=== PATIENT | male | born 1965 | race Caucasian/White ===

== ENCOUNTER 2023-03-11 10:52 | Outpatient (RCR) | payer OTHER, SELFPAY | END 2023-03-29 12:53 | disposition home or self-care (01) | LOC: ROT 10:52 | PROVIDERS: ATTENDING PHYSICIAN Orthopaedic Surgery; PRIMARYCARE PHYSICIAN Nurse Practitioner Adult Health | DX: M65.331 Trigger finger, right middle finger (principal); Z73.6 Limitation of activities due to disability; M79.644 Pain in right finger(s) | CPT/HCPCS: 97166; 97535 ==

== ENCOUNTER → 2023-08-09 06:28 | Day surgery (SDC) | payer OTHER, SELFPAY | LOC: GI 06:28 | PROVIDERS: ATTENDING PHYSICIAN Internal Medicine Gastroenterology | DX: Z12.11 Encounter for screening for malignant neoplasm of colon (principal); Z80.0 Family history of malignant neoplasm of digestive organs; K64.8 Other hemorrhoids; K57.30 Diverticulosis of large intestine without perforation or abscess without bleeding | CPT/HCPCS: G0105 ==

== ENCOUNTER → 2024-02-16 20:36 | Outpatient (REF) | payer OTHER, SELFPAY | LOC: MRI 20:36 | PROVIDERS: ATTENDING PHYSICIAN Orthopaedic Surgery; FAMILY PHYSICIAN Nurse Practitioner Adult Health | DX: M25.512 Pain in left shoulder (principal) | CPT/HCPCS: 70030; 73221 ==

== ENCOUNTER → 2024-08-10 10:25 | Outpatient (REF) | payer OTHER, SELFPAY ==
[2024-08-10 11:08] LABS: % Basophils 0.7 % (0-2); % Eosinophils 2.3 % (0-6); % Immature Granulocytes 0.2 % (0-0.5); % Lymphocytes 26.5 % (20.5-51.1); % Monocytes 9.3 % (1.7-9.3); Absolute Eosinophils 0.1 10^3/uL (0-0.7); Absolute Lymphocytes 1.5 10^3/uL (1.2-3.4); Absolute Monocytes 0.5 10^3/uL (0.1-0.6); Absolute Neutrophils 3.4 10^3/uL (1.4-6.5); Hematocrit 44.2 % (39.0-52.0); Hemoglobin 15.2 g/dL (13.0-18.0); Mean Corp Hgb Conc. 34.4 g/dL (33.0-37.0); Mean Corpuscular Hgb 31.1 pg (27.0-31.0); Mean Corpuscular Volume 90.6 fL (80.0-94.0); Nucleated Red Blood Cells % 0 % (-); Platelet Count 153 10^3/uL (130-400); Red Blood Cell Count 4.88 10^6/uL (4.70-6.10); Red Cell Dist. Width 12.4 % (11.5-14.5); White Blood Cell Count 5.6 10^3/uL (4.8-10.8)
[2024-08-10 11:45] LABS: Blood Urea Nitrogen 21 mg/dl (9-20); Calcium 9.8 mg/dl (8.4-10.2); Carbon Dioxide 29 mmol/L (22-30); Chloride 100 mmol/L (98-107); Glucose 108 mg/dl (70-99); Potassium 4.5 mmol/L (3.5-5.1); Sodium 138 mmol/L (135-145); eGFR > 60.00
== END ==
LOC: REG 10:25
PROVIDERS: ATTENDING PHYSICIAN Specialist; FAMILY PHYSICIAN Orthopaedic Surgery
DX: Z01.818 Encounter for other preprocedural examination (principal)
CPT/HCPCS: 36415; 80048; 85025; 93005

== ENCOUNTER 2024-10-24 16:32 | Outpatient (RCR) | payer OTHER, SELFPAY | END 2024-10-24 23:59 | disposition home or self-care (01) | LOC: RPT 16:32 | PROVIDERS: ATTENDING PHYSICIAN Orthopaedic Surgery; FAMILY PHYSICIAN Nurse Practitioner Adult Health | DX: Z47.89 Encounter for other orthopedic aftercare (principal); Z73.6 Limitation of activities due to disability; M25.512 Pain in left shoulder; M62.81 Muscle weakness (generalized) | CPT/HCPCS: 97010; 97110; 97140; 97162 ==

== ENCOUNTER 2024-11-20 15:00 | Outpatient (RCR) | payer OTHER, SELFPAY | END 2024-11-20 23:59 | disposition home or self-care (01) | LOC: RPT 15:00 | PROVIDERS: ATTENDING PHYSICIAN Orthopaedic Surgery; FAMILY PHYSICIAN Nurse Practitioner Adult Health | DX: Z47.89 Encounter for other orthopedic aftercare (principal); Z73.6 Limitation of activities due to disability; M25.512 Pain in left shoulder; M62.81 Muscle weakness (generalized) | CPT/HCPCS: 97010; 97110; 97140 ==

== ENCOUNTER 2024-12-11 15:02 | Outpatient (RCR) | payer OTHER, SELFPAY | END 2024-12-26 09:33 | disposition home or self-care (01) | LOC: RPT 15:02 | PROVIDERS: ATTENDING PHYSICIAN Orthopaedic Surgery; FAMILY PHYSICIAN Nurse Practitioner Adult Health | DX: Z47.89 Encounter for other orthopedic aftercare (principal); M25.512 Pain in left shoulder; Z73.6 Limitation of activities due to disability; M62.81 Muscle weakness (generalized) | CPT/HCPCS: 97110; 97140 ==

== ENCOUNTER → 2025-02-13 09:49 | Outpatient (REF) | payer OTHER, SELFPAY | LOC: PAVMRI 09:49 | PROVIDERS: ATTENDING PHYSICIAN Physician Assistant; FAMILY PHYSICIAN Nurse Practitioner Adult Health | DX: M54.16 Radiculopathy, lumbar region (principal); Z13.89 Encounter for screening for other disorder | CPT/HCPCS: 70030; 72148 ==